=== PATIENT | female | born 1970 | race Caucasian/White ===

== ENCOUNTER 2018-07-29 08:50 | Outpatient (CLI) | payer OTHER ==
--- NOTE | 2018-07-29 11:09 | ULT ---
RIGHT BREAST ULTRASOUND: HISTORY: A 48-year-old female who presents for ultrasound followup of a prior outside mammogram which demonstr ated a mass in the 9 o'clock position of the right breast. FINDINGS: There is a solid somewhat inhomogeneous oval mass in the right breast at 9 o'clock approximately 7 cm from the nipple. This mass measures approximately 1.3 x 2.2 x 3.3 cm in size. Further evaluation w ith ultrasound-guided biopsy is recommended. IMPRESSION: BIRADS category 4, suspicious finding. Followup ultrasound-guided biopsy is recommended. Findings were discussed with the patient who will be put in contact with Roseanna for scheduling purposes in regards to the right breast biopsy. Findings were discussed with Dr. Garcia at 9:40 a.m. CODE CR POS: OFF
== END 2018-07-29 08:51 | disposition home or self-care (01) ==
LOC: BICMAMMO 08:50
PROVIDERS: ATTEND Family Medicine
DX: R92.8 Other abnormal and inconclusive findings on diagnostic imaging of breast (principal)

== ENCOUNTER → 2018-08-06 | Day surgery (SDC) | payer OTHER ==
--- NOTE | 2018-08-06 15:25 | ULT ---
SONOGRAPHIC GUIDED RIGHT BREAST MASS BIOPSY: HISTORY: Right breast mass. FINDINGS: After explaining the procedure and answering all questions, the heterogeneous hypoechoic mass at the lateral aspect of the right breast was visualized. Sterile technique, buffered local anesthesia, son ographic guidance, and an inferolateral approach were used to carefully advance a 14 gauge biopsy nee dle to the mass. A total of three core biopsy specimens were obtained. A localization clip was plac ed in the biopsy bed, under sonographic control. The needle was removed. The patient tolerated the procedure well and was eventually dismissed in good condition. Post procedure mammography shows a localization clip at the edge of the mass. IMPRESSION: Technically successful sonographic guided biopsy, right breast mass. Pathology is pending. POS: [id number]
== END ==
LOC: BICULT 12:26
PROVIDERS: ATTEND Radiology Diagnostic Radiology
PROC: 0HBT3ZX Excision of Right Breast, Percutaneous Approach, Diagnostic (ICD-10-PCS; principal; 2018-08-06)
DX: N62 Hypertrophy of breast (principal); N60.81 Other benign mammary dysplasias of right breast
CPT/HCPCS: 19083; 88305

== ENCOUNTER 2019-12-22 | Outpatient (CLI) | payer OTHER | END 2019-12-22 10:30 | disposition home or self-care (01) | DX: Z12.31 Encounter for screening mammogram for malignant neoplasm of breast (principal); Z91.89 Other specified personal risk factors, not elsewhere classified ==